=== PATIENT | female | born 1940 | race Caucasian/White ===

== ENCOUNTER → 2021-06-08 | Outpatient (CLI) | payer MEDICARE ==
[2021-06-08 13:16] LABS: CREATININE 1.2 mg/dL (0.5-1.5)
== END | disposition home or self-care (01) ==
LOC: LAB 11:56
PROVIDERS: ATTEND Internal Medicine Cardiovascular Disease
DX: I48.0 Paroxysmal atrial fibrillation (principal)
CPT/HCPCS: 36415; 82565; 84520

== ENCOUNTER → 2021-06-17 | Outpatient (CLI) | payer MEDICARE ==
[~2021-06-17] MED LIST: IOHEXOL 350 MG/ML 100ML INFUS..BTL IV ONE
== END | disposition home or self-care (01) ==
LOC: RAH 10:00
PROVIDERS: ATTEND Internal Medicine Cardiovascular Disease
DX: I48.0 Paroxysmal atrial fibrillation (principal); I51.89 Other ill-defined heart diseases; K44.9 Diaphragmatic hernia without obstruction or gangrene; N28.1 Cyst of kidney, acquired; N28.89 Other specified disorders of kidney and ureter; M48.54XA Collapsed vertebra, not elsewhere classified, thoracic region, initial encounter for fracture
CPT/HCPCS: 71275; Q9967

== ENCOUNTER 2021-12-28 08:28 | Day surgery (SDC) | payer MEDICARE ==
[2021-12-23 11:22] LABS: BASOPHILS % (AUTO) 0.4 % (0.0-5.0); EOSINOPHILS % (AUTO) 0.8 % (0.0-8.0); HEMATOCRIT 42.4 % (36-48); MEAN CORPUSCULAR HGB CONC 32.3 g/dL (32.0-36.0); MEAN CORPUSCULAR VOLUME 95.9 fL (79-99); MONOCYTES % (AUTO) 10.3 % (3.0-13.0); NEUTROPHILS % (AUTO) 72.2 % (40.0-77.0); PLATELET COUNT (AUTO) 259 K/uL (130-400); RED BLOOD CELL COUNT(AUTO) 4.42 MIL/uL (4.00-5.50); RED CELL DISTRIBUTION WIDTH 13.7 % (11.0-15.5); WHITE BLOOD COUNT (AUTO) 10.1 K/uL (4.8-10.8)
[2021-12-23 11:32] LABS: CREATININE 1.1 mg/dL (0.5-1.5); POTASSIUM 4.9 mmol/L (3.5-5.1)
[2021-12-23 11:36] LABS: INR 1.01 (0.85-1.15)
[2021-12-23 11:37] LABS: PARTIAL THROMBOPLASTIN TIME 30.5 SEC (26.3-35.5)
[2021-12-27 13:15] VITALS: BP 144/61
[~2021-12-28] VITALS: Ht 162.6 cm; Wt 81.0 kg
[~2021-12-28 08:28] MED LIST changes: +0.9%NACL 100ML 100 ML IV SCH; +APIX5TAB PO; +DULO60CA64 PO; +EZET-59 PO; +FLUT200B IH; -IOHEXOL 350 MG/ML 100ML INFUS..BTL IV ONE; +MONT-39 PO; +PANT40TA54 PO
[2021-12-28 09:29] VITALS: BP 114/66
[2021-12-28] MEDS ORDERED: 0.9%NACL 1000ML 1,000 ML IV ONE (09:35)
[2021-12-28] MEDS ORDERED: LIDOCAINE HCL 400MG/20ML VIAL ONE (11:17)
[2021-12-28] MEDS ORDERED: HEPARIN 10,000 UNIT/10ML (1,000 UNIT/ML) VIAL ONE (11:17)
[2021-12-28] MEDS ORDERED: MIDAZOLAM HCL 1 MG/ML 2ML VIAL ONE ×3 (12:12→13:25)
[2021-12-28] MEDS ORDERED: MEPERIDINE-PF 25 MG/ML SYG ONE ×4 (12:13→13:25)
[2021-12-28 14:15] VITALS: BP 113/68
[2021-12-28 14:45] VITALS: BP 131/58
[2021-12-28 15:30] VITALS: BP 128/58
[2021-12-28 16:00] VITALS: BP 131/61
== END 2021-12-28 16:35 | disposition home or self-care (01) ==
LOC: DAH 08:28
PROVIDERS: ATTEND Internal Medicine Cardiovascular Disease
DX: I48.0 Paroxysmal atrial fibrillation (principal); I48.92 Unspecified atrial flutter; I10 Essential (primary) hypertension; E78.5 Hyperlipidemia, unspecified; Z90.710 Acquired absence of both cervix and uterus; Z79.01 Long term (current) use of anticoagulants; Z79.899 Other long term (current) drug therapy
CPT/HCPCS: 80048; 85025; 85610; 85730; 36415; 93005 ×2; 93653; C1894 ×2; A4649 ×2; C1732; C1730; J3490; J7030; J1644 ×2; J2250 ×2; J2175 ×3; A4215; A4222; A4221; A4663; A4216; A4606; A4223 ×3; 99156; 99157

== ENCOUNTER → 2022-02-28 | Outpatient (CLI) | payer MEDICARE ==
[~2022-02-28] MED LIST changes: -0.9%NACL 100ML 100 ML IV SCH
[2022-02-28 12:31] LABS: BASOPHILS % (AUTO) 0.6 % (0.0-5.0); EOSINOPHILS % (AUTO) 1.3 % (0.0-8.0); HEMATOCRIT 42.5 % (36-48); LYMPHOCYTES % (AUTO) 24.6 % (21.0-51.0); MEAN CORPUSCULAR HEMOGLOBIN 29.9 pg (27.0-33.0); MEAN CORPUSCULAR HGB CONC 32.9 g/dL (32.0-36.0); MEAN CORPUSCULAR VOLUME 90.8 fL (79-99); MONOCYTES % (AUTO) 10.1 % (3.0-13.0); NEUTROPHILS % (AUTO) 63.1 % (40.0-77.0); PLATELET COUNT (AUTO) 260 K/uL (130-400); RED BLOOD CELL COUNT(AUTO) 4.68 MIL/uL (4.00-5.50); WHITE BLOOD COUNT (AUTO) 8.7 K/uL (4.8-10.8)
[2022-02-28 12:56] LABS: ALBUMIN 3.9 g/dL (3.5-5.0); CREATININE 1.4 mg/dL (0.5-1.5); MAGNESIUM 2.2 mg/dL (1.80-2.40); POTASSIUM 4.5 mmol/L (3.5-5.1); THYROID STIMULATING HORMONE 2.41 uIU/mL (0.36-3.74); TOTAL PROTEIN, SERUM 7.4 g/dL (6.0-8.3)
== END | disposition home or self-care (01) ==
LOC: LAB 11:10
PROVIDERS: ATTEND Physician Assistant
DX: I48.3 Typical atrial flutter (principal); I10 Essential (primary) hypertension
CPT/HCPCS: 36415; 80053; 83735; 84443; 85025

== ENCOUNTER 2024-05-16 16:42 | Inpatient (IN) | payer MEDICARE ==
[~2024-05-16] VITALS: Ht 162.6 cm; Wt 75.7 kg
[~2024-05-16 16:42] MED LIST changes: -BUDESONIDE 0.5 MG/2 ML INH IH SCH; -EZETIMIBE 10 MG TAB PO SCH; -IpraTROPium 0.5 MG/2.5 ML INH IH PRN; -METO25TA6 PO; -PANTOPrazole 40 MG TAB DR PO SCH; -RAMI1.2529 PO; -SERTraline HCL 50 MG TABLET PO SCH; -acetaMINOPHEN 325 MG TAB PO PRN; -dilTIAZem 120MG SR CAP PO SCH; -metoPROLOL tartRATE 25 MG TAB PO SCH; -monteLUKAST sodIUM 10 MG TAB PO SCH; -ondanSETRON 4MG INJ IVP PRN
[2024-05-16] MEDS ORDERED: acetaMINOPHEN 500 MG TABLET PO PRN (17:00)
[2024-05-16] MEDS ORDERED: ondanSETRON 4MG INJ IVP PRN (17:00)
[2024-05-16 17:20] LABS: BASOPHILS # (AUTO) 0.04 K/uL (0.00-0.20); BASOPHILS % (AUTO) 0.4 % (0.0-5.0); EOSINOPHILS # (AUTO) 0.12 K/uL (0.00-0.70); EOSINOPHILS % (AUTO) 1.3 % (0.0-8.0); HEMATOCRIT 36.2 % (36-48); IMMATURE GRANULOCYTE ABSOLUTE 0.02 K/uL (0-1); LYMPHOCYTES # (AUTO) 1.9 K/uL (1.0-4.8); LYMPHOCYTES % (AUTO) 20.9 % (21.0-51.0); MEAN CORPUSCULAR HEMOGLOBIN 27.9 pg (27.0-33.0); MEAN CORPUSCULAR HGB CONC 30.9 g/dL (32.0-36.0); MEAN CORPUSCULAR VOLUME 90.3 fL (79-99); MONOCYTES # (AUTO) 1.1 K/uL (0.1-1.0); MONOCYTES % (AUTO) 11.7 % (3.0-13.0); NEUTROPHILS % (AUTO) 65.5 % (40.0-77.0); PLATELET COUNT (AUTO) 299 K/uL (130-400); RED BLOOD CELL COUNT(AUTO) 4.01 MIL/uL (4.00-5.50); RED CELL DISTRIBUTION WIDTH 14.9 % (11.0-15.5); WHITE BLOOD COUNT (AUTO) 9.1 K/uL (4.8-10.8)
--- NOTE | 2024-05-16 17:23 | HMCIMG ---
CHEST 1VW HISTORY: Pulmonary edema COMPARISON: None FINDINGS: A frontal projection of the chest was obtained. Mild bilateral pulmonary infiltrates are seen may be related to mild pulmonary vascular congestion with possible superimposed pneumonitis. The heart is borderline enlarged. Degenerative changes are seen. Aortic calcifications are seen. IMPRESSION: 1. Mild bilateral pulmonary infiltrates are seen may be related to mild pulmonary vascular congestion with possible superimposed pneumonitis.
[2024-05-16] MEDS ORDERED: IpraTROPium 0.5 MG/2.5 ML INH IH PRN (17:30)
[2024-05-16 17:37] LABS: CREATININE 1.2 mg/dL (0.5-1.0); POTASSIUM 3.8 mmol/L (3.5-5.1); PROTHROMBIN TIME 11.2 SEC (9.6-11.6)
[2024-05-16 17:39] LABS: PARTIAL THROMBOPLASTIN TIME 27.3 SEC (26.3-35.5)
[2024-05-16 17:47] LABS: B-TYPE NATRIURETIC PEPTIDE 253 pg/mL (0-100)
[2024-05-16 17:50] LABS: ALBUMIN 3.8 g/dL (3.5-5.0); BILIRUBIN,TOTAL 0.5 mg/dL (0.2-1.0); MAGNESIUM 1.9 mg/dL (1.80-2.40); THYROID STIMULATING HORMONE 1.34 uIU/mL (0.36-3.74); TOTAL PROTEIN, SERUM 7.3 g/dL (6.0-8.3)
[2024-05-16] MEDS ORDERED: PoTASSium chloRIDE 20MEQ/100ML 100 ML IV PRN (18:00)
[2024-05-16] MEDS ORDERED: PoTASSium chloRIDE 20MEQ ER 20 MEQ ERTAB PO PRN (18:00)
--- NOTE | 2024-05-16 18:54 | HP ---
[facility] HISTORY AND PHYSICAL Date of Service: May 16, 2024 Time of Service: 18:33 HISTORY OF PRESENT ILLNESS: [Date of service: 05/16/2024, patient was seen in ER pending sale to [facility] 83-year-old female with underlying history of hypertension, hyperlipidemia, p aroxysmal atrial fibrillation on long-term anticoagulation with Eliquis, paroxysmal atrial flutter status post ablation of atrial flutter on 12/2021, atrial fibrillation status post Farapulse pulse field ablation on 08/30/2023, recurrent atrial fibrillation and atypical atrial flutter status post repeat Farapulse pulse field ablation on 04/23/2024 with Watchman left atrial appendage closure performed in [facility], history of [id number] mitral regurgitation with mitral annulus caseous calcification on cardiac MRI from 07/20 who presented as a direct admission from Dr. 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 Patient states that postprocedure, she noticed that she has been having progressive pain and swelling involving the right wrist with pulsation noted. Pain is moderate in intensity and the swelling has not improved. She was hospitalized in [facility] earlier in March this year after she was found to have sepsis with complicated urinary tract infection. She was found to have low serum cortisol during her admission and was discharged on hydrocortisone for two weeks. She has not been tested for adrenal insufficiency as outpatient. Patient does report having mild lower extremity edema as well as dyspnea on exertion. She reports having mild orthopnea as well. She is on outpatient Lasix 20 mg daily. Denies any falls, chest pain or syncope. On presentation to the hospital, patient was noted to be afebrile with T-max of 98.2 F, heart rate of 59, blood pressure of 156/69. Patient underwent ultraso und of the right right wrist which showed pseudoaneurysm of the right radial artery measuring 1.8 cm x 1.1 cm x 1.5 cm. Surgical consultation has already been requested with Dr. Rogers with Cardiovascular surgery. Tentative plan for surgical repair of the pseudoaneurysm for tomorrow. Patient will be admitted under hospitalist service for further treatment management.] REVIEW OF SYSTEMS CONSTITUTIONAL: Denies fevers, chills, or night sweats. No unintentional weight loss reported. NEUROLOGICAL: Denies headache, amaurosis fugax, motor weakness, sensory deficit, vertigo/spinning sensation, gait abnormalities, or tremors. ENT: No hearing loss, otalgia, otorrhea, rhinitis, rhinorrhea, hoarseness, or sore throat. CARDIOVASCULAR: Dyspne on exertion, orthopnea, lower extremity swelling PULMONARY: Denies any shortness of breath, cough, phlegm/sputum, hemoptysis, pleuritic chest pain. SLEEP: Denies morning headaches, daytime somnolence or napping. Denies difficulty falling asleep, staying asleep, waking from sleep. Denies knowledge of snoring. GASTROINTESTINAL: Denies any type of dysphagia to either liquids or solids. Denies nausea, vomiting, pyrosis, early satiety, abdominal pain, diarrhea, constipation, or changes in stool consistency or caliber. Denies coffee-ground emesis, hematemesis, hematochezia, or melanotic stools. GENITOURINARY: Denies frequency, urgency, nocturia, hematuria or incontinence (Storage/Irritative symptoms.) Low urinary stream, straining to void, urinary intermittency or hesitancy, splitting of the voiding stream, terminal dribbling. ENDOCRINOLOGIC: Denies polyuria, polydipsia, polyphagia or heat/cold intolerances. HEMATOLOGIC: Denies thrombophilia/previous clots, or coagulopathy/bleeding disorders. ONCOLOGIC: Denies personal history of malignancy. DERMATOLOGIC: Denies rashes or pruritus. PSYCHIATRIC: Denies any suicidal or homicidal ideation. Denies hallucinations. PAST MEDICAL HISTORY: [ Paroxysmal atrial fibrillation status post Farapulse pulse field radiofrequency ablation of atrial fibrillation on 08/30/2023, recurrent atrial fibrillation and atypical atrial flutter status post Farapulse pulse field ablation on 04/17 with Watchman left atrial appendage closure performed in [facility] in [facility], history of long-term anticoagulation with Eliquis for paroxysmal atrial fibrillation, history of normal coronary arteries by cardiac catheterization in 2010, case she was mitral annular calcification noted on cardiac MRI from 07/07/2021, history of trivial mitral stenosis and mild to moderate mitral regurgitation noted on 2D echocardiogram from 01/06/2022, history of ktxd-cy-vufalhox mitral stenosis noted on 2D echocardiogram from 03/30 021, hypertension, hyperlipidemia, history of T12-L1 compression fracture status post fall noted on 2018, history of asthma] PAST SURGICAL HISTORY: [Status post Farapulse pulse field ablation done on 04/23/2024 with Watchman left atrial happened age closure performed in [facility] in [place], [place] History of paroxysmal atrial fibrillation status post radiofrequency ablation on 08/30/2023 History of cardiac catheterization with normal coronary recent 2010 History of L1 kyphoplasty on 04/2019] PAST SOCIAL HISTORY: [ Denies any active smoking or alcohol consumption, resides with sister at home] FAMILY HISTORY: [ Patient reports having family history of heart disease ] Medications: Patient reports currently being on sertraline 25 mg p.o. nightly, metoprolol tartrate 25 mg p.o. twice daily, Eliquis 5 mg p.o. twice daily, diltiazem ER 300 mg p.o. daily, ezetimibe 10 mg p.o. daily, Protonix 40 mg p.o. daily, montelukast 10 mg p.o. daily, ramipril 2.5 mg p.o. daily Coded Allergies: codeine (Unverified Allergy, Unknown, 05/16/24) penicillin G (Verified Allergy, Unknown, 12/23/21) PHYSICAL EXAM GENERAL APPEARANCE: The patient is awake, alert, and oriented, in no acute cardiopulmonary distress. NEUROLOGICAL: Cranial nerves II-XII grossly intact. Motor is 5/5 in bilateral upper and lower extremities proximal to distal. No sensory deficits. HEENT: Face is symmetric. Pupils are equal and reactive. Extraocular movements are intact. NECK: Supple. No JVD. No thyromegaly. No submental, submandibular, pre- /postauricular, occipital or supraclavicular lymphadenopathy. CHEST: Normal chest expansion. No Telemetry. LUNGS: Absence of any rales, rhonchi or any wheezing. CARDIOVASCULAR: Regular. S1 and S2 normal. No appreciable rubs, murmurs or gallops. ABDOMEN: Soft, nontender, and nondistended. There is no rebound, voluntary guarding, or rigidity. : Deferred. No Downey. EXTREMITIES: 1+ pitting edema of the bilateral lower extremities, patient has a about a 25 mm x 23 mm pulsatile mass noted of the right radial artery near the catheterization puncture site. SKIN: No skin breakdown. Vital Sign (Last 24 Hours) 05/16/24 16:46 Temp 98.2 Pulse 59 Resp 20 B/P (MAP) 156/69 Pulse Ox 97 O2 Delivery Room Air LABS: Laboratory: Test 05/16/24 17:08 Range/Units White Blood Count 9.1 4.8-10.8 K/uL Red Blood Count 4.01 4.00-5.50 MIL/uL Hemoglobin 11.2 L 12.0-16.0 g/dL Hematocrit 36.2 36-48 % Mean Corpuscular Volume 90.3 79-99 fL Mean Corpuscular Hemoglobin 27.9 27.0-33.0 pg Mean Corpuscular Hemoglobin Concent 30.9 L 32.0-36.0 g/dL Red Cell Distribution Width 14.9 11.0-15.5 % Platelet Count 299 130-400 K/uL Mean Platelet Volume 10.0 7.5-10.5 fL Immature Granulocyte % (Auto) 0.2 0-1 % Neutrophils (%) (Auto) 65.5 40.0-77.0 % Lymphocytes (%) (Auto) 20.9 L 21.0-51.0 % Monocytes (%) (Auto) 11.7 3.0-13.0 % Eosinophils (%) (Auto) 1.3 0.0-8.0 % Basophils (%) (Auto) 0.4 0.0-5.0 % Neutrophils # (Auto) 6.0 1.8-7.7 K/uL Lymphocytes # (Auto) 1.9 1.0-4.8 K/uL Monocytes # (Auto) 1.1 H 0.1-1.0 K/uL Eosinophils # (Auto) 0.12 0.00-0.70 K/uL Basophils # (Auto) 0.04 0.00-0.20 K/uL Absolute Immature Granulocyte (auto 0.02 0-1 K/uL Nucleated Red Blood Cells 0.0 0.0-0.19 % Red Blood Cell Morphology See comments Prothrombin Time 11.2 9.6-11.6 SEC Prothromb Time International Ratio 1.00 0.85-1.15 Activated Partial Thromboplast Time 27.3 26.3-35.5 SEC Sodium Level 144 136-145 mmol/L Potassium Level 3.8 3.5-5.1 mmol/L Chloride Level 105 101-111 mmol/L Carbon Dioxide Level 33 H 21-32 mmol/L Blood Urea Nitrogen 20 H 7-18 mg/dL Creatinine 1.2 H 0.5-1.0 mg/dL Glomerular Filtration Rate Calc 45 >90 mL/min Random Glucose 106 H 70-105 mg/dL Total Calcium 9.3 8.5-10.1 mg/dL Magnesium Level 1.90 1.80-2.40 mg/dL Total Bilirubin 0.5 0.2-1.0 mg/dL Aspartate Amino Transf (AST/SGOT) 25 10-37 U/L Alanine Aminotransferase (ALT/SGPT) 28 12-78 U/L Alkaline Phosphatase 47 L 50-136 U/L C-Reactive Protein, Quantitative 3.60 H 0.5-3.0 mg/L B-Type Natriuretic Peptide 253 H 0-100 pg/mL Total Protein 7.3 6.0-8.3 g/dL Albumin 3.8 3.5-5.0 g/dL Thyroid Stimulating Hormone (TSH) 1.34 # 0.36-3.74 uIU/mL Current Medications Medications (Trade) Dose Ordered Sig/Margy Route PRN Reason Start Time Stop Time Status Last Admin Dose Admin Acetaminophen (TYLenol 500MG TAB) 500 mg Q6H PRN PO MILD PAIN (1-3) 05/16/24 17:00 06/15/24 16:59 Budesonide (Pulmicort 0.5 Mg/2ml) 0.5 mg BIDRESP IH 05/16/24 18:00 06/15/24 17:59 EZETIMIBE (Zetia) 10 mg DAILY PO 05/17/24 09:00 06/16/24 08:59 Furosemide (LASix 20MG VIAL) 20 mg DAILY IV 05/16/24 20:00 06/15/24 19:59 Home Med (Home Medication) DILTIAZEM XR 300MG TAB DAILY PO 05/17/24 09:00 06/16/24 08:59 Ipratropium Folcroft (AtrovENT UD) 0.5 mg Q6H PRN IH SHORTNESS OF BREATH 05/16/24 17:30 06/15/24 17:29 Magnesium Sulfate 50 ml @ 0 mls/hr PROTOCOL IV 05/16/24 18:00 06/15/24 17:59 Metoprolol Tartrate (loprESSOR) 25 mg BID PO 05/16/24 21:00 06/15/24 20:59 Montelukast Sodium (SinguLAIR) 10 mg DAILY PO 05/17/24 09:00 06/16/24 08:59 Ondansetron HCl (zoFRAN 4MG INJ) 4 mg Q6H PRN IVP NAUSEA/VOMITING 05/16/24 17:00 06/15/24 16:59 Pantoprazole Sodium (PROTonix 40MG TAB) 40 mg DAILY PO 05/17/24 09:00 06/16/24 08:59 Potassium Chloride 100 ml @ 100 mls/hr AD PRN IV POTASSIUM PROTOCOL 05/16/24 18:00 06/15/24 17:59 Potassium Chloride (K-Dur/Klor-Con 20meq) 20 meq AD PRN PO POTASSIUM PROTOCOL 05/16/24 18:00 06/15/24 17:59 Potassium Chloride (KCl 10% Elixir 20meq/15ml) 20 meq AD PRN PO POTASSIUM PROTOCOL 05/16/24 18:00 06/15/24 17:59 Sertraline HCl (ZOloft 50 mg tab) 25 mg HS PO 05/16/24 21:00 06/15/24 20:59 DIAGNOSTICS / RADIOLOGY: [SERVICE REASON: r/o pulmonary edema ORDERING PHYSICIAN: SEVERINO YEE MD PROCEDURE: CXR1VW - CHEST 1VW CHEST 1VW HISTORY: Pulmonary edema COMPARISON: None FINDINGS: A frontal projection of the chest was obtained. Mild bilateral pulmonary infiltrates are seen may be related to mild pulmonary vascular congestion with possible superimposed pneumonitis. The heart is borderline enlarged. Degenerative changes are seen. Aortic calcifications are seen. IMPRESSION: 1. Mild bilateral pulmonary infiltrates are seen may be related to mild pulmonary vascular congestion with possible superimposed pneumonitis. DICTATED BY: MARTÍNEZ SUE MD DATE: 05/16/241719 ELECTRONICALLY SIGNED BY: MARTÍNEZ SUE MD DATE: 05/16/241722 SERVICE REASON: PSEUDO ORDERING PHYSICIAN: ANGEL VALENCIA MD PROCEDURE: SOFT UP EX - US SOFT TISSUE UPPER EXTREMITY US SOFT TISSUE UPPER EXTREMITY REASON: PSEUDO. COMPARISON: None TECHNIQUE: Right radial artery Doppler ultrasound study was performed. FINDINGS: There is pseudoaneurysm noted in the right radial artery area measuring 1.8 x 1.1 x 1.5 cm with a neck measuring 1 mm long and 2 mm wide. IMPRESSION: Pseudoaneurysm seen adjacent to the right radial artery. DICTATED BY: MARTÍNEZ SUE MD DATE: 05/16/241628 ELECTRONICALLY SIGNED BY: MARTÍNEZ SUE MD DATE: 05/16/241634 ASSESSMENT: Pseudo-aneurysm involving the right radial artery, (measuring 1.8 cm x 1.1 cm x 1.5 cm ), POA Recent history of Farapulse pulse field ablation due to paroxysmal atrial fi brillation and atypical atrial flutter in [place], [place], 04/23/2024, POA Status post watchman left atrial appendage closure, 04/23/2024, POA History of chronic anticoagulation with apixaban, (last dose on a.m. of 05/16/2024), POA Acute diastolic heart failure exacerbation, POA Underlying history of mild mitral stenosis and [id number] mitral regurgitation noted on 2D echo from 01/06/2022, POA History of caseous mitral annular calcification noted on cardiac MRI from 07/07/2021 Hypertension, POA Hyperlipidemia, POA Obstructive sleep apnea on CPAP therapy at home, POA Underlying history of asthma, POA Recent history of sepsis due to complicated UTI requiring hospitalization in [facility] on 03/2024, POA Recent history of low serum cortisol on labs from 03/2024, rule out adrenal insufficiency, POA CKD stage 3, POA PLAN: Patient will be admitted to cardiac telemetry floor Soft tissue ultrasound showed right radial artery pseudoaneurysm, tentative plan for surgical repair of the right radial artery tomorrow by Dr. Rogers, patient will be kept NPO past midnight Outpatient anticoagulation with Eliquis will be placed on hold for planned surgical repair, last dose of Eliquis was on the morning of 05/16/2024 Patient reports having dyspnea on exertion with mild orthopnea, chest x-ray shows mild pulmonary edema with mildly elevated BNP, we will start patient on IV Lasix 20 mg with a dose for tonight We will maintain K greater than four and magnesium greater than two, protocol for magnesium and potassium has already been placed We will obtain a random serum cortisol at 7:00 a.m. tomorrow and if significantly low, patient may need cosyntropin stimulation test to rule out adrenal insufficiency Patient will continue with Pulmicort and Atrovent nebulizers q.6 hours p.r.n. Appreciate recommendations by Dr. Machado with Cardiology DVT prophylaxis with SCDs All labs will be repeated in the morning including CBC, CMP, magnesium, patient will be kept NPO past midnight, volume status will be optimized prior to anesthesia and surgical repair of the right radial artery Family will be bringing home CPAP machine, which patient we will resume for management of BOLIVAR Date of service: 05/16/2024 Plan of care was discussed with patient and sister at bedside, Severino Yee MD Advanced Care Planning: Which of the following were discussed: Hospice care: Yes __ No _X_ Therapeutic options: Yes _X_ No __ Advance directives: Yes _X_ No __ Other discussions: Discussed with who?: Patient Voluntary nature of this service was explained to the patient? Yes _x_ No __ Amount of time spent: 20 minutes SEVERINO YEE MD May 16, 2024 18:54
[2024-05-16] MEDS: BUDESONIDE 0.5 MG/2 ML INH IH SCH (19:18)
[2024-05-16 19:22] VITALS: PULSE 64; RESP 19
[2024-05-16 19:23] VITALS: PULSE 66; RESP 19; O2SAT 99
[2024-05-16] MEDS ORDERED: PHARMACY COMMUNICATION MISC SCH (19:30)
[2024-05-16] MEDS: metoPROLOL tartRATE 25 MG TAB PO SCH (20:32)
[2024-05-16] MEDS: furoSEMIDE 20MG VIAL IV SCH (20:32)
[2024-05-16] MEDS: SERTraline HCL 50 MG TABLET PO SCH (20:49)
--- NOTE | 2024-05-16 21:43 | NUR ---
UNABLE TO RECONCILE MEDS INSTRUCTED PATIENT ASK ONE OF HER FAMILY TO BRING HER LIST OF MEDS TOMORROW
--- NOTE | 2024-05-17 07:03 | NUR ---
SECURED CONSENT FOR REPAIR OF RIGHT RADIAL ANEURYSM- [employer]DY ELAINE
[2024-05-17 07:24] VITALS: PULSE 67; RESP 18; O2SAT 99
[2024-05-17 07:25] VITALS: PULSE 67; RESP 19
[2024-05-17 07:41] LABS: BASOPHILS # (AUTO) 0.04 K/uL (0.00-0.20); BASOPHILS % (AUTO) 0.5 % (0.0-5.0); EOSINOPHILS % (AUTO) 1.4 % (0.0-8.0); HEMATOCRIT 33.2 % (36-48); IMMATURE GRANULOCYTE ABSOLUTE 0.02 K/uL (0-1); LYMPHOCYTES # (AUTO) 1.3 K/uL (1.0-4.8); LYMPHOCYTES % (AUTO) 17.8 % (21.0-51.0); MEAN CORPUSCULAR HGB CONC 31.6 g/dL (32.0-36.0); MEAN CORPUSCULAR VOLUME 88.5 fL (79-99); MONOCYTES # (AUTO) 0.9 K/uL (0.1-1.0); MONOCYTES % (AUTO) 11.9 % (3.0-13.0); NEUTROPHILS % (AUTO) 68.1 % (40.0-77.0); PLATELET COUNT (AUTO) 281 K/uL (130-400); RED BLOOD CELL COUNT(AUTO) 3.75 MIL/uL (4.00-5.50); RED CELL DISTRIBUTION WIDTH 14.7 % (11.0-15.5); WHITE BLOOD COUNT (AUTO) 7.4 K/uL (4.8-10.8)
[2024-05-17 08:00] LABS: ALBUMIN 3.3 g/dL (3.5-5.0); BILIRUBIN,TOTAL 0.7 mg/dL (0.2-1.0); MAGNESIUM 1.8 mg/dL (1.80-2.40); POTASSIUM 3.3 mmol/L (3.5-5.1); TOTAL PROTEIN, SERUM 6.4 g/dL (6.0-8.3)
[2024-05-17 08:09] LABS: B-TYPE NATRIURETIC PEPTIDE 174 pg/mL (0-100)
[2024-05-17 08:13] VITALS: O2SAT 97
[2024-05-17] MEDS: DILTIAZEM 300 MG PO SCH (09:00)
[2024-05-17] MEDS: monteLUKAST sodIUM 10 MG TAB PO SCH (09:14)
[2024-05-17] MEDS: PANTOPrazole 40 MG TAB DR PO SCH (09:14)
[2024-05-17] MEDS: EZETIMIBE 10 MG TAB PO SCH (09:14)
[2024-05-17] MEDS: PoTASSium chl 10% ELIXIR 20MEQ 20 MEQ/15 ML UDCUP PO PRN (09:29)
--- NOTE | 2024-05-17 10:11 | PN ---
[facility] CARDIOLOGY PROGRESS NOTE Date Patient Seen: May 17, 2024 Time of Visit: 09:49 Interval History: This 83-year-old Latin-[place] female, patient of mine at [facility], has a history of hypertension, hyperlipidemia, caseous calcification of the mitral annulus with trivial mitral stenosis and [id number]-[id number] MR by 2D echo 01/06/2022, and paroxysmal atrial fibrillation is status post prior Farapulse pulse field ablation of her atrial fibrillation 08/30/2023 in more recent repeat Farapulse pulse field ablation of recurrent atrial fibrillation and atypical atrial flutter 04/23/[address] Petros Neal at [facility] in [facility]. She presented to my office 05/16/2024 complaining of a painful right radial artery pulsation and swelling. Clinically she had evidence of a right radial artery pseudoaneurysm and she was directly admitted for ultrasound and surgical management. Presumably the aneurysm is a result of a right radial artery arterial line performed for monitoring of her anesthesia for her atrial fibrillation ablation procedure 04/23/2024. 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 She underwent an ultrasound of the right radial artery 05/16/2024 demonstrating a pseudoaneurysm of the right radial artery measuring 1.8 cm x 1.1 cm x 1.[address] Manny Rogers is pending and surgery is tentatively planned for this afternoon or tomorrow depending on OR availability. Of note the patient had evidence of acute on chronic diastolic CHF on admission, and she has been placed on a dose of furosemide 20 IV daily x2 days and we will transition to p.o. daily beginning tomorrow. Physical Examination: GENERAL: No acute distress. HEAD: Normal with no signs of head trauma. EYES: PERRLA, EOMI, conjunctiva and sclera normal. NECK: Supple without JVD. There is no tenderness, lymphadenopathy, or masses. No thyromegaly. Normal carotid upstrokes without bruits. LUNGS: Clear breath sounds bilaterally. No wheezes, or rhonchi. HEART: Normal rate and rhythm. Normal S1 and S2 without murmurs, gallop or rub. VASC: Peripheral pulses +2 bilaterally. EXT: No clubbing, cyanosis or edema. 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 NEURO: Awake, alert, and oriented x3. No focal neurological deficits noted. Laboratory: Hematology Labs: Test 05/17/24 07:07 05/16/24 17:08 Range/Units White Blood Count 7.4 4.8-10.8 K/uL Red Blood Count 3.75 L 4.00-5.50 MIL/uL Hemoglobin 10.5 L 12.0-16.0 g/dL Hematocrit 33.2 L 36-48 % Mean Corpuscular Volume 88.5 79-99 fL Mean Corpuscular Hemoglobin 28.0 27.0-33.0 pg Mean Corpuscular Hemoglobin Concent 31.6 L 32.0-36.0 g/dL Red Cell Distribution Width 14.7 11.0-15.5 % Platelet Count 281 130-400 K/uL Mean Platelet Volume 10.4 7.5-10.5 fL Immature Granulocyte % (Auto) 0.3 0-1 % Neutrophils (%) (Auto) 68.1 40.0-77.0 % Lymphocytes (%) (Auto) 17.8 L 21.0-51.0 % Monocytes (%) (Auto) 11.9 3.0-13.0 % Eosinophils (%) (Auto) 1.4 0.0-8.0 % Basophils (%) (Auto) 0.5 0.0-5.0 % Neutrophils # (Auto) 5.0 1.8-7.7 K/uL Lymphocytes # (Auto) 1.3 1.0-4.8 K/uL Monocytes # (Auto) 0.9 0.1-1.0 K/uL Eosinophils # (Auto) 0.10 0.00-0.70 K/uL Basophils # (Auto) 0.04 0.00-0.20 K/uL Absolute Immature Granulocyte (auto 0.02 0-1 K/uL Nucleated Red Blood Cells 0.0 0.0-0.19 % Red Blood Cell Morphology See comments Chemistry Labs: Test 05/17/24 07:07 05/16/24 17:08 Range/Units Sodium Level 142 136-145 mmol/L Potassium Level 3.3 L 3.5-5.1 mmol/L Chloride Level 104 101-111 mmol/L Carbon Dioxide Level 30 21-32 mmol/L Blood Urea Nitrogen 15 7-18 mg/dL Creatinine 1.0 0.5-1.0 mg/dL Glomerular Filtration Rate Calc 57 >90 mL/min Random Glucose 90 70-105 mg/dL Total Calcium 8.7 8.5-10.1 mg/dL Magnesium Level 1.80 1.80-2.40 mg/dL Total Bilirubin 0.7 # 0.2-1.0 mg/dL Aspartate Amino Transf (AST/SGOT) 21 10-37 U/L Alanine Aminotransferase (ALT/SGPT) 23 12-78 U/L Alkaline Phosphatase 40 L 50-136 U/L B-Type Natriuretic Peptide 174 H 0-100 pg/mL Total Protein 6.4 6.0-8.3 g/dL Albumin 3.3 L 3.5-5.0 g/dL C-Reactive Protein, Quantitative 3.60 H 0.5-3.0 mg/L Thyroid Stimulating Hormone (TSH) 1.34 # 0.36-3.74 uIU/mL Coagulation Labs: Test 05/16/24 17:08 Range/Units Prothrombin Time 11.2 9.6-11.6 SEC Prothromb Time International Ratio 1.00 0.85-1.15 Activated Partial Thromboplast Time 27.3 26.3-35.5 SEC Diagnostics / Radiology: Right radial artery ultrasound 05/16/2024 showed pseudoaneurysm of the right radial artery measuring 1.8 cm x 1.1 cm x 1.5 cm. Impression and Plan: Right radial artery pseudoaneurysm measuring 1.8 cm by 1.1 cm x 1.5 cm by ultrasound 05/16/2024, at the site of a prior radial arterial line from procedure 04/23/2024: -surgical consultation and management is pending -last dose of Eliquis was 9:00 a.m. 05/16/2024, okay to proceed at 36 hours since last dose Paroxysmal atrial fibrillation s/p status post prior Farapulse pulse field ablation of her atrial fibrillation 08/30/2023 and more recent repeat Farapulse pulse field ablation of recurrent atrial fibrillation and atypical atrial flutter 04/23/2024 (with Watchman left atrial occluded device) by Dr. Petros Neal at [facility] in [facility]: -continue long-term Eliquis anticoagulation, postprocedurally Long-term anticoagulation with Eliquis for paroxysmal AFib: Status post Watchman left atrial occluded device 04/23/2024: -resume Eliquis anticoagulation postprocedurally Normochromic normocytic anemia: -check a stool guaiac while here and iron studies, B12, and folate Recent history of low serum cortisol on labs from 03/2024, rule out adrenal insufficiency: -pending a.m. cortisol Comorbidities: Trivial mitral stenosis and [id number] MR by 2D echo 01/06/2022 with caseous calcification of the mitral annulus by MRI 07/07/2021 in [place] Essential hypertension Hyperlipidemia Normal coronary arteries by cardiac catheterization in 2010 Inflammatory lung disease status post steroid therapy and tapering December 15, 2016 Obstructive sleep apnea on CPAP therapy at home Underlying history of asthma Recent history of sepsis due to complicated UTI requiring hospitalization in [facility] [place] 03[place]2024 CKD stage 3 ELVI GARCIA MD May 17, 2024 10:11
[2024-05-17] MEDS ORDERED: METO25TA6 PO (11:23)
[2024-05-17] MEDS ORDERED: RAMI1.2529 PO (11:23)
[2024-05-17 12:00] VITALS: BP 143/63; PULSE 18; RESP 17; TEMP 98.3
[2024-05-17] MEDS ORDERED: CLINDAMYCIN IVPB 600MG/50ML 50 ML IV SCH (12:00)
[2024-05-17] MEDS: MAGNESIUM 2GM PREMIX 50ML 50 ML IV SCH (12:42)
--- NOTE | 2024-05-17 15:27 | PN ---
[facility] PROGRESS NOTE Date of Service: May 17, 2024 Time of Service: 14:57 SUBJECTIVE: 05/17/2024 the patient was evaluated this morning at her bedside. She is alert and oriented to person, place, and time. Vital signs are stable, with a temperature of 97 F, heart rate of 78 bpm, respiratory rate of 20, and blood pressure of 144/58. The patient is scheduled for surgery today to repair a pseudoaneurysm in her right wrist. The medication Eliquis was held prior to surgery and will be resumed post procedure. Laboratory results WBC 7.4 Previously 9.1, hemoglobin 10.5 Previously 11.2, platelets 281 previously 299, sodium 142 previously 144, potassium 3.3 Previously 3.8, creatinine 1.0 previously 1.2, GFR 57 previously 45. Pending labs include morning cortisol, stool guaiac, iron studies, vitamin B12, and folate levels. The patient will continue to be monitored, and recommendations from Cardiology and Cardiovascular teams will be followed. REVIEW OF SYSTEMS CONSTITUTIONAL: Denies fevers, chills, or night sweats. No unintentional weight loss reported. NEUROLOGICAL: Denies headache, amaurosis fugax, motor weakness, sensory deficit, vertigo/spinning sensation, gait abnormalities, or tremors. ENT: No hearing loss, otalgia, otorrhea, rhinitis, rhinorrhea, hoarseness, or sore throat. CARDIOVASCULAR: Dyspne on exertion, orthopnea, lower extremity swelling PULMONARY: Denies any shortness of breath, cough, phlegm/sputum, hemoptysis, pleuritic chest pain. SLEEP: Denies morning headaches, daytime somnolence or napping. Denies difficulty falling asleep, staying asleep, waking from sleep. Denies knowledge of snoring. GASTROINTESTINAL: Denies any type of dysphagia to either liquids or solids. Denies nausea, vomiting, pyrosis, early satiety, abdominal pain, diarrhea, constipation, or changes in stool consistency or caliber. Denies coffee-ground emesis, hematemesis, hematochezia, or melanotic stools. GENITOURINARY: Denies frequency, urgency, nocturia, hematuria or incontinence (Storage/Irritative symptoms.) Low urinary stream, straining to void, urinary intermittency or hesitancy, splitting of the voiding stream, terminal dribbling. ENDOCRINOLOGIC: Denies polyuria, polydipsia, polyphagia or heat/cold intolerances. HEMATOLOGIC: Denies thrombophilia/previous clots, or coagulopathy/bleeding disorders. ONCOLOGIC: Denies personal history of malignancy. DERMATOLOGIC: Denies rashes or pruritus. PSYCHIATRIC: Denies any suicidal or homicidal ideation. Denies hallucinations. PHYSICAL EXAM GENERAL APPEARANCE: The patient is awake, alert, and oriented, in no acute cardiopulmonary distress. NEUROLOGICAL: Cranial nerves II-XII grossly intact. Motor is 5/5 in bilateral upper and lower extremities proximal to distal. No sensory deficits. HEENT: Face is symmetric. Pupils are equal and reactive. Extraocular movements are intact. NECK: Supple. No JVD. No thyromegaly. No submental, submandibular, pre- /postauricular, occipital or supraclavicular lymphadenopathy. CHEST: Normal chest expansion. No Telemetry. LUNGS: Absence of any rales, rhonchi or any wheezing. CARDIOVASCULAR: Regular. S1 and S2 normal. No appreciable rubs, murmurs or gallops. ABDOMEN: Soft, nontender, and nondistended. There is no rebound, voluntary guarding, or rigidity. : Deferred. No Downey. EXTREMITIES: 1+ pitting edema of the bilateral lower extremities, patient has a about a 25 mm x 23 mm pulsatile mass noted of the right radial artery near the catheterization puncture site. SKIN: No skin breakdown. Vital Signs (last 8hr) Date Time Temp Pulse Resp B/P (MAP) Pulse Ox O2 Delivery O2 Flow Rate FiO2 05/17/24 12:00 98.2 18 17 143/63 97 Room Air 05/17/24 08:13 97.0 78 20 144/58 97 Room Air* 0 21 05/17/24 07:25 67 19 05/17/24 07:24 67 18 N/A Room Air 21 LABS: Laboratory: Test 05/17/24 07:07 05/16/24 17:08 Range/Units White Blood Count 7.4 4.8-10.8 K/uL Red Blood Count 3.75 L 4.00-5.50 MIL/uL Hemoglobin 10.5 L 12.0-16.0 g/dL Hematocrit 33.2 L 36-48 % Mean Corpuscular Volume 88.5 79-99 fL Mean Corpuscular Hemoglobin 28.0 27.0-33.0 pg Mean Corpuscular Hemoglobin Concent 31.6 L 32.0-36.0 g/dL Red Cell Distribution Width 14.7 11.0-15.5 % Platelet Count 281 130-400 K/uL Mean Platelet Volume 10.4 7.5-10.5 fL Immature Granulocyte % (Auto) 0.3 0-1 % Neutrophils (%) (Auto) 68.1 40.0-77.0 % Lymphocytes (%) (Auto) 17.8 L 21.0-51.0 % Monocytes (%) (Auto) 11.9 3.0-13.0 % Eosinophils (%) (Auto) 1.4 0.0-8.0 % Basophils (%) (Auto) 0.5 0.0-5.0 % Neutrophils # (Auto) 5.0 1.8-7.7 K/uL Lymphocytes # (Auto) 1.3 1.0-4.8 K/uL Monocytes # (Auto) 0.9 0.1-1.0 K/uL Eosinophils # (Auto) 0.10 0.00-0.70 K/uL Basophils # (Auto) 0.04 0.00-0.20 K/uL Absolute Immature Granulocyte (auto 0.02 0-1 K/uL Nucleated Red Blood Cells 0.0 0.0-0.19 % Sodium Level 142 136-145 mmol/L Potassium Level 3.3 L 3.5-5.1 mmol/L Chloride Level 104 101-111 mmol/L Carbon Dioxide Level 30 21-32 mmol/L Blood Urea Nitrogen 15 7-18 mg/dL Creatinine 1.0 0.5-1.0 mg/dL Glomerular Filtration Rate Calc 57 >90 mL/min Random Glucose 90 70-105 mg/dL Total Calcium 8.7 8.5-10.1 mg/dL Magnesium Level 1.80 1.80-2.40 mg/dL Total Bilirubin 0.7 # 0.2-1.0 mg/dL Aspartate Amino Transf (AST/SGOT) 21 10-37 U/L Alanine Aminotransferase (ALT/SGPT) 23 12-78 U/L Alkaline Phosphatase 40 L 50-136 U/L B-Type Natriuretic Peptide 174 H 0-100 pg/mL Total Protein 6.4 6.0-8.3 g/dL Albumin 3.3 L 3.5-5.0 g/dL Red Blood Cell Morphology See comments Prothrombin Time 11.2 9.6-11.6 SEC Prothromb Time International Ratio 1.00 0.85-1.15 Activated Partial Thromboplast Time 27.3 26.3-35.5 SEC C-Reactive Protein, Quantitative 3.60 H 0.5-3.0 mg/L Thyroid Stimulating Hormone (TSH) 1.34 # 0.36-3.74 uIU/mL Current Medications Medications (Trade) Dose Ordered Sig/Margy Route PRN Reason Start Time Stop Time Status Last Admin Dose Admin Acetaminophen (TYLenol 500MG TAB) 500 mg Q6H PRN PO MILD PAIN (1-3) 05/16/24 17:00 06/15/24 16:59 Budesonide (Pulmicort 0.5 Mg/2ml) 0.5 mg BIDRESP IH 05/16/24 18:00 06/15/24 17:59 05/17/24 07:22 0.5 MG Clindamycin HCl/ Dextrose 50 ml @ 100 mls/hr ONCALL IV 05/17/24 12:00 05/19/24 11:59 EZETIMIBE (Zetia) 10 mg DAILY PO 05/17/24 09:00 06/16/24 08:59 05/17/24 09:14 10 MG Furosemide (LASix 20MG TAB) 20 mg DAILY PO 05/18/24 09:00 06/17/24 08:59 Furosemide (LASix 20MG VIAL) 20 mg DAILY IV 05/16/24 20:00 05/17/24 10:11 DC 05/17/24 09:14 20 MG Home Med (Home Medication) 1 TAB DAILY DAILY PO 05/17/24 09:00 06/16/24 08:59 Home Med (Home Medication) DILTIAZEM XR 300MG TAB DAILY PO 05/17/24 09:00 06/16/24 08:59 Ipratropium Sylvester (AtrovENT UD) 0.5 mg Q6H PRN IH SHORTNESS OF BREATH 05/16/24 17:30 06/15/24 17:29 Magnesium Sulfate 50 ml @ 0 mls/hr PROTOCOL IV 05/16/24 18:00 06/15/24 17:59 05/17/24 12:42 25 MLS/HR Metoprolol Tartrate (loprESSOR) 25 mg BID PO 05/16/24 21:00 06/15/24 20:59 05/17/24 09:14 25 MG Montelukast Sodium (SinguLAIR) 10 mg DAILY PO 05/17/24 09:00 06/16/24 08:59 05/17/24 09:14 10 MG Ondansetron HCl (zoFRAN 4MG INJ) 4 mg Q6H PRN IVP NAUSEA/VOMITING 05/16/24 17:00 06/15/24 16:59 Pantoprazole Sodium (PROTonix 40MG TAB) 40 mg DAILY PO 05/17/24 09:00 06/16/24 08:59 05/17/24 09:14 40 MG Pharmacy Profile Note (Pharmacy Communication) 1 each ONCE MISC 05/16/24 19:30 05/16/24 19:26 DC Potassium Chloride 100 ml @ 100 mls/hr AD PRN IV POTASSIUM PROTOCOL 05/16/24 18:00 06/15/24 17:59 Potassium Chloride (K-Dur/Klor-Con 20meq) 20 meq AD PRN PO POTASSIUM PROTOCOL 05/16/24 18:00 06/15/24 17:59 Potassium Chloride (KCl 10% Elixir 20meq/15ml) 20 meq AD PRN PO POTASSIUM PROTOCOL 05/16/24 18:00 06/15/24 17:59 05/17/24 09:29 20 MEQ Sertraline HCl (ZOloft 50 mg tab) 25 mg HS PO 05/16/24 21:00 06/15/24 20:59 05/16/24 20:49 25 MG DIAGNOSTICS / RADIOLOGY: PATIENT: MINDI CUNNINGHAM MR#: [id number] : 1940 SEX: F AGE: 83 LOCATION: EDHIP ORDER 55 STATUS: ADM IN REPORT#: [id number] SERVICE 54 REASON: r/o pulmonary edema ORDERING PHYSICIAN: ZACHARY WILKES MD PROCEDURE: CXR1VW - CHEST 1VW CHEST 1VW HISTORY: Pulmonary edema COMPARISON: None FINDINGS: A frontal projection of the chest was obtained. Mild bilateral pulmonary infiltrates are seen may be related to mild pulmonary vascular congestion with possible superimposed pneumonitis. The heart is borderline enlarged. Degenerative changes are seen. Aortic calcifications are seen. IMPRESSION: 1. Mild bilateral pulmonary infiltrates are seen may be related to mild pulmonary vascular congestion with possible superimposed pneumonitis. DICTATED BY: MARTÍNEZ SUE MD DATE: 05/16/241719 ELECTRONICALLY SIGNED BY: MARTÍNEZ SUE MD DATE: 05/16/241722 ASSESSMENT: Pseudo-aneurysm involving the right radial artery, (measuring 1.8 cm x 1.1 cm x 1.5 cm ), POA Recent history of Farapulse pulse field ablation due to paroxysmal atrial fibrillation and atypical atrial flutter in [facility], [place], [place], 04/23/2024, POA Status post watchman left atrial appendage closure, 04/23/2024, POA History of chronic anticoagulation with apixaban, (last dose on a.m. of 05/16/2024), POA Acute diastolic heart failure exacerbation, POA Underlying history of mild mitral stenosis and [id number] mitral regurgitation noted on 2D echo from 01/06/2022, POA History of caseous mitral annular calcification noted on cardiac MRI from 07/07/2021 Hypertension, POA Hyperlipidemia, POA Obstructive sleep apnea on CPAP therapy at home, POA Underlying history of asthma, POA Recent history of sepsis due to complicated UTI requiring hospitalization in [facility] on 03/2024, POA Recent history of low serum cortisol on labs from 03/2024, rule out adrenal insufficiency, POA CKD stage 3, POA PLAN: Continue cardiac telemetry floor Soft tissue ultrasound showed right radial artery pseudoaneurysm, tentative plan for surgical repair of the right radial artery today by Dr. Rogers, patient will be kept NPO anticoagulation with Eliquis will be placed on hold for planned surgical repair, last dose of Eliquis was on the morning of 05/16/2024. Continue IV Lasix 20 mg Continue maintain K greater than four and magnesium greater than two, protocol for magnesium and potassium has already been placed Pending random serum cortisol at 7:00 a.m. t Continue with Pulmicort and Atrovent nebulizers q.6 hours p.r.n. Appreciate recommendations by Dr. Machado with Cardiology DVT prophylaxis with SCDs All labs will be repeated in the morning including CBC, CMP, magnesium, patient will be kept NPO past midnight, volume status will be optimized prior to anesthesia and surgical repair of the right radial artery ATTESTATION BY PHYSICIAN I have seen and examined the patient. I reviewed the documentation, medical decision making, and treatment plan as noted by the resident provider above. I agree with the findings and plan of care. Abdulkadir Osorio MD, GERARDO MD May 17, 2024 15:27
--- NOTE | 2024-05-17 15:41 | NUR ---
DCP: HOME Pt lives with her sister Maria G [place] [phone]. Pt is independent of ADLS, uses no DME or in home care services. PCP Gavino Crews and uses [facility] for rx. Denies dc needs and will return home at md. Addendum: 05/17/24 at 1542 by DELANEY TAN SS Amended: Links added.
--- NOTE | 2024-05-17 16:24 | NUR ---
Patient was discharged, all discharge documentation and personal items taken by patient. Patient informed to follow up with [facility] in 1-[address] Rogers in 1-2 weeks. No new scripts provided, IV was removed, patient ambulated out of facility independently accompanied by daughter.
--- NOTE | 2024-05-17 18:15 | DS ---
Discharge Summary Hospital Course Summary: 83-year-old female with underlying history of hypertension, hyperlipidemia, paroxysmal atrial fibrillation on long-term anticoagulation with Eliquis, paroxysmal atrial flutter status post ablation of atrial flutter on 12/2021, atrial fibrillation status post Farapulse pulse field ablation on 08/30/2023, re current atrial fibrillation and atypical atrial flutter status post repeat Farapulse pulse field ablation on 04/23/2024 with Watchman left atrial appendage closure performed in [facility], history of [id number] mitral regurgitation with mitral annulus caseous calcification on cardiac MRI from 07/20 who presented as a direct admission from Dr. Machado's clinic for further evaluation of possible pseudoaneurysm involving the right radial artery after recent ablation procedure on 04/23/2024.Patient states that postprocedure, she noticed that she has been having progressive pain and swelling involving the right wrist with pulsation noted. Pain is moderate in intensity and the swelling has not improved. The patient was evaluated this morning at her [facility]. She was alert and oriented to person, place, and time. Vital signs were stable, with temperature of 97 F, heart rate of 78 bpm, respiratory rate of 20, and blood pressure of 144/58 mmHg. The patient was initially scheduled for surgery today to repair a pseudoaneurysm in her right wrist. In the afternoon, Dr. Rogers, the cardiovascular surgeon, spoke with the patient and explained that due to insurance-related delays, an emergency case, and a heavy workload, the surgery will need to be rescheduled. Dr. Rogers assured the patient that the procedure could be safely performed on an outpatient basis and planned after the hols. I followed up with the patient after her conversation with Dr. Rogers. She remained stable, and her laboratory results were within relatively normal ranges. Given her stability, the decision was made to discharge the patient. The patient was advised to follow up with her primary care physician within 3-5 days. She was instructed to schedule a follow-up appointment with Dr. Rogers at his clinic to plan the surgery. Additionally, she was advised to follow-up with her industrial order clerk, Dr. Machado, for further evaluation. The patient resumed her regular home medications. The patient was stable at the time of discharge and understood the plan of care. Food Processing Scientist(s): Cardiology Cardiovascular surgery Procedure(s): PATIENT: MINDI CUNNINGHAM MR#: [id number] : 1940 SEX: F AGE: 83 LOCATION: EDHIP ORDER 55 STATUS: ADM IN REPORT#: [id number] SERVICE 54 REASON: r/o pulmonary edema ORDERING PHYSICIAN: ZACHARY WILKES MD PROCEDURE: CXR1VW - CHEST 1VW CHEST 1VW HISTORY: Pulmonary edema COMPARISON: None FINDINGS: A frontal projection of the chest was obtained. Mild bilateral pulmonary infiltrates are seen may be related to mild pulmonary vascular congestion with possible superimposed pneumonitis. The heart is borderline enlarged. Degenerative changes are seen. Aortic calcifications are seen. IMPRESSION: 1. Mild bilateral pulmonary infiltrates are seen may be related to mild pulmonary vascular congestion with possible superimposed pneumonitis. DICTATED BY: MARTÍNEZ SUE MD DATE: 05/16/241719 ELECTRONICALLY SIGNED BY: MARTÍNEZ SUE MD DATE: 05/16/241722 Assessment/Plan: ASSESSMENT: Pseudo-aneurysm involving the right radial artery, (measuring 1.8 cm x 1.1 cm x 1.5 cm ), POA Recent history of Farapulse pulse field ablation due to paroxysmal atrial fibrillation and atypical atrial flutter in [facility], [place], [place], 04/23/2024, POA Status post watchman left atrial appendage closure, 04/23/2024, POA History of chronic anticoagulation with apixaban, (last dose on a.m. of 05/16/2024), POA Acute diastolic heart failure exacerbation, POA Underlying history of mild mitral stenosis and coue-rz-[id number] mitral regurgitation noted on 2D echo from 01/06/2022, POA History of caseous mitral annular calcification noted on cardiac MRI from 07/07/2021 Hypertension, POA Hyperlipidemia, POA Obstructive sleep apnea on CPAP therapy at home, POA Underlying history of asthma, POA Recent history of sepsis due to complicated UTI requiring hospitalization in [facility] on 03/2024, POA Recent history of low serum cortisol on labs from 03/2024, rule out adrenal insufficiency, POA CKD stage 3, POA Discharge Instructions: Follow-up with PCP in 3-5 days Follow-up with cardiology in 1-2 weeks Follow-up with Dr. Rgoers Cardiovascular surgery in 1-2 weeks Home Medications: Reported Medications Metoprolol Tartrate (Metoprolol Tartrate) 25 Mg Tablet, 1 TAB PO BID for 30 Days, #60 TAB 0 Refills 05/17/24 Ramipril (Ramipril) 1.25 Mg Capsule, 1 CAP PO DAILY for 30 Days, #30 CAP 0 Refills 05/17/24 Ezetimibe/Simvastatin (Ezetimibe-Simvastatin 10-20 mg) 1 Each Tablet, 1 EACH PO HS, TAB 12/27/21 Duloxetine HCl (Duloxetine HCl) 60 Mg Capsule.dr, 60 MG PO HS, CAP 12/27/21 Fluticasone Furoate (Arnuity Ellipta) 200 Mcg Blst.w.dev, 1 INHALER IH DAILY PRN for SHORTNESS OF BREATH 12/27/21 Montelukast Sodium (Montelukast Sodium) 10 Mg Tablet, 10 MG PO HS, TAB 12/27/21 Pantoprazole Sodium (Pantoprazole Sodium) 40 Mg Tablet.dr, 40 MG PO DAILY, TAB 12/27/21 Apixaban (Eliquis) 5 Mg Tablet, 5 MG PO BID, TAB 12/27/21 Continued Medications: Apixaban (Eliquis) 5 Mg Tablet 5 MG PO BID, TAB Duloxetine HCl (Duloxetine HCl) 60 Mg Capsule.dr 60 MG PO HS, CAP Ezetimibe/Simvastatin (Ezetimibe-Simvastatin 10-20 mg) 1 Each Tablet 1 EACH PO HS, TAB Fluticasone Furoate (Arnuity Ellipta) 200 Mcg Blst.w.dev 1 INHALER IH DAILY PRN for SHORTNESS OF BREATH Metoprolol Tartrate (Metoprolol Tartrate) 25 Mg Tablet 1 TAB PO BID for 30 Days, #60 TAB 0 Refills Montelukast Sodium (Montelukast Sodium) 10 Mg Tablet 10 MG PO HS, TAB Pantoprazole Sodium (Pantoprazole Sodium) 40 Mg Tablet.dr 40 MG PO DAILY, TAB Ramipril (Ramipril) 1.25 Mg Capsule 1 CAP PO DAILY for 30 Days, #30 CAP 0 Refills Time spent arranging discharge: 1-30 minutes ATTESTATION BY PHYSICIAN I have seen and examined the patient. I reviewed the documentation, medical decision making, and treatment plan as noted by the resident provider above. I agree with the findings and plan of care. Abdulkadir Osorio MD, GERARDO MD May 17, 2024 18:15
[2024-05-18] MEDS ORDERED: furoSEMIDE 20 MG TABLET PO SCH (09:00)
== END 2024-05-17 16:20 | disposition home or self-care (01) | DRG 299 ==
LOC: EDH 16:42 → EDHIP 16:51
PROVIDERS: ADMIT Internal Medicine; ATTEND Internal Medicine
DX: I72.1 Aneurysm of artery of upper extremity (principal); I50.33 Acute on chronic diastolic (congestive) heart failure; I13.0 Hypertensive heart and chronic kidney disease with heart failure and stage 1 through stage 4 chronic kidney disease, or unspecified chronic kidney disease; E78.5 Hyperlipidemia, unspecified; G47.33 Obstructive sleep apnea (adult) (pediatric); I34.0 Nonrheumatic mitral (valve) insufficiency; I48.0 Paroxysmal atrial fibrillation; J45.909 Unspecified asthma, uncomplicated; Z79.01 Long term (current) use of anticoagulants; Z79.899 Other long term (current) drug therapy; Z82.49 Family history of ischemic heart disease and other diseases of the circulatory system; Z95.818 Presence of other cardiac implants and grafts; J98.4 Other disorders of lung; N18.30 Chronic kidney disease, stage 3 unspecified
CPT/HCPCS: 36415; 71045; 80053; 82533; 83735; 83880; 84443; 85025; 85610; 85730; 86140; 86850; 86900; 86901; 94640; 94664; G0378; J1940; J3475

== ENCOUNTER → 2024-05-16 | Outpatient (CLI) | payer MEDICARE ==
[~2024-05-16] MED LIST changes: +BUDESONIDE 0.5 MG/2 ML INH IH SCH; +EZETIMIBE 10 MG TAB PO SCH; +IpraTROPium 0.5 MG/2.5 ML INH IH PRN; +METO25TA6 PO; +PANTOPrazole 40 MG TAB DR PO SCH; +RAMI1.2529 PO; +SERTraline HCL 50 MG TABLET PO SCH; +acetaMINOPHEN 325 MG TAB PO PRN; +dilTIAZem 120MG SR CAP PO SCH; +metoPROLOL tartRATE 25 MG TAB PO SCH; +monteLUKAST sodIUM 10 MG TAB PO SCH; +ondanSETRON 4MG INJ IVP PRN
--- NOTE | 2024-05-16 16:35 | HMCIMG ---
US SOFT TISSUE UPPER EXTREMITY REASON: PSEUDO. COMPARISON: None TECHNIQUE: Right radial artery Doppler ultrasound study was performed. FINDINGS: There is pseudoaneurysm noted in the right radial artery area measuring 1.8 x 1.1 x 1.5 cm with a neck measuring 1 mm long and 2 mm wide. IMPRESSION: Pseudoaneurysm seen adjacent to the right radial artery.
== END | disposition home or self-care (01) ==
LOC: RAH 15:33
PROVIDERS: ATTEND Student in an Organized Health Care Education/Training Program
DX: I72.1 Aneurysm of artery of upper extremity (principal)
CPT/HCPCS: 76882

== ENCOUNTER 2024-06-07 05:33 | Day surgery (SDC) | payer MEDICARE ==
--- NOTE | 2024-06-06 16:56 | HMCIMG ---
CHEST 1VW HISTORY: Preop COMPARISON: 05/16/2024 FINDINGS: A frontal projection of the chest was obtained. No acute pulmonary infiltrates is seen. The heart is borderline enlarged. Aortic calcifications are seen. Degenerative changes are seen. IMPRESSION: 1. No acute pulmonary infiltrate is seen.
[2024-06-07] VITALS (14 sets, daily range): BP systolic 109–139; BP diastolic 44–75; PULSE 60–85; RESP 14–18; TEMP 97.3–97.5
[~2024-06-07] VITALS: Ht 162.6 cm; Wt 74.4 kg
[~2024-06-07 05:33] MED LIST changes: +METO25TA6 PO; +RAMI1.2529 PO
[2024-06-07 06:20] LABS: HEMATOCRIT 35.8 % (36-48); MEAN CORPUSCULAR HGB CONC 31.6 g/dL (32.0-36.0); MEAN CORPUSCULAR VOLUME 85.4 fL (79-99); RED BLOOD CELL COUNT(AUTO) 4.19 MIL/uL (4.00-5.50); RED CELL DISTRIBUTION WIDTH 14.6 % (11.0-15.5); WHITE BLOOD COUNT (AUTO) 10.6 K/uL (4.8-10.8)
[2024-06-07 06:35] LABS: POTASSIUM 3.5 mmol/L (3.5-5.1)
[2024-06-07 06:55] LABS: INR 0.96 (0.85-1.15); PROTHROMBIN TIME 10.8 SEC (9.6-11.6)
[2024-06-07 06:56] LABS: PARTIAL THROMBOPLASTIN TIME 26.5 SEC (26.3-35.5)
[2024-06-07] MEDS ORDERED: ceFAZolin SODIUM 1 GM VIAL ONE (07:04)
[2024-06-07] MEDS ORDERED: HEParin-NS 1,000 UNIT/500 ML 500 ML IV ONE (07:04)
[2024-06-07] MEDS: ceFAZolin SODIUM 2 GM VIAL ONE (08:21)
[2024-06-07] MEDS: 0.9%NACL 1000ML 1,000 ML IV ONE (08:21)
[2024-06-07] MEDS ORDERED: DILT300C54 PO (08:26)
[2024-06-07] MEDS ORDERED: SERT-439 PO (08:26)
[2024-06-07] MEDS ORDERED: RAMI2.5C57 PO (08:26)
[2024-06-07] MEDS ORDERED: TRAZ-185 PO (08:26)
[2024-06-07] MEDS ORDERED: CLINDAMYCIN IVPB 900MG/50ML 50 ML IV ONE (08:55)
[2024-06-07] MEDS ORDERED: dexaMETHasone SOD PHOSPHATE 10MG/ML 1ML VIAL ONE (09:07)
[2024-06-07] MEDS ORDERED: LIDOCAINE PF 100MG/5ML (2%) SYRINGE 5ML ONE (09:07)
[2024-06-07] MEDS ORDERED: proPOFol 10 MG/ML 20ML VIAL IV ONE (09:08)
[2024-06-07] MEDS ORDERED: FENTanyl CITRate PF 50 MCG/1 ML 2ML VIAL ONE (09:08)
[2024-06-07] MEDS ORDERED: NEOSTIGMINE METHYLSULFATE 1MG/ML IV ONE (09:08)
[2024-06-07] MEDS ORDERED: GLYCOPYRROLATE 0.2 MG/ML 5 ML VIAL ONE (09:08)
[2024-06-07] MEDS ORDERED: rocuRONium bROMide 10MG/1ML 5ML VL ONE (09:08)
[2024-06-07] MEDS ORDERED: SUCCINYLCHOLINE CHLORIDE 20 MG/ML 10 ML VIAL ONE (09:08)
--- NOTE | 2024-06-07 20:25 | OP ---
DATE OF PROCEDURE: 06/07/2024 PREOPERATIVE DIAGNOSIS: Pseudoaneurysm radial artery, right hand. POSTOPERATIVE DIAGNOSIS: Pseudoaneurysm radial artery, right hand. PROCEDURE PERFORMED: Primary repair and resection. SURGEON: Manny Rogers MD RETAIL PLANNER: . DISPOSITION: Stable. COMPLICATIONS: None. INDICATIONS: This is a patient of Dr. Machado who underwent a procedure to the radial artery and developed a pseudoaneurysm that matured. The patient was initially given conservative therapy by pressure and thrombin injection and the pseudoaneurysm did not disappear. The patient is brought forward for repair. FINDINGS AT THE TIME OF SURGERY: A 1.8 cm pseudoaneurysm was identified and resected and its puncture site in the radial artery repaired primarily with 6-0 Prolene. At the end of the procedure, we had good pulses. Important is to mention the radial nerve was identified and kept protected at all times. DESCRIPTION OF PROCEDURE: With the patient in supine position after adequate induction of general endotracheal anesthesia, preoperative intravenous antibiotics, percutaneous arterial and venous lines, the patient was given heparin 2500, and a small elliptical incision was performed removing part of the skin. The pseudoaneurysm was fully mobilized, control obtained proximally and distally. The pseudoaneurysm was entered and resected, and the small puncture site was repaired with an interrupted suture of [id number] of 8-0 Prolene. Hemostasis and closure with 2-0 Vicryl and 3-0 Monocryl. The patient was transferred in stable condition to the recovery room. TID: [id number] RECEIPT: [id number]
== END 2024-06-07 11:35 | disposition home or self-care (01) ==
LOC: DAH 05:33
PROVIDERS: ATTEND Thoracic Surgery (Cardiothoracic Vascular Surgery)
DX: I72.1 Aneurysm of artery of upper extremity (principal); I25.10 Atherosclerotic heart disease of native coronary artery without angina pectoris; I48.19 Other persistent atrial fibrillation; I10 Essential (primary) hypertension; E78.5 Hyperlipidemia, unspecified; Z88.0 Allergy status to penicillin; Z88.5 Allergy status to narcotic agent; Z79.01 Long term (current) use of anticoagulants; Z79.899 Other long term (current) drug therapy
CPT/HCPCS: 71045; 37799; 80048; 85027; 85610; 85730; 86850; 86900; 86901; 36415; A4223 ×2; A4663; J7040; J7030 ×2; J3010; J0690; J1100; J0330; J3490 ×3; J2003; J2704; J2710; J1644; A4649 ×5; A6251; C1713 ×2; A4930 ×2; A4215; A4213; A4222; A4221; A4216

== ENCOUNTER → 2024-06-27 | Outpatient (CLI) | payer MEDICARE ==
[~2024-06-27] MED LIST changes: +DILT300C54 PO; -DULO60CA64 PO; -RAMI1.2529 PO; +RAMI2.5C57 PO; +SERT-439 PO; +TRAZ-185 PO
[2024-06-27 16:50] LABS: % IRON SATURATION 6.8 % (22-44)
[2024-06-27 16:58] LABS: FERRITIN 25 ng/mL (15-150)
== END | disposition home or self-care (01) ==
LOC: LAB 11:46
PROVIDERS: ATTEND Internal Medicine Cardiovascular Disease
DX: D64.9 Anemia, unspecified (principal); E78.5 Hyperlipidemia, unspecified; I72.9 Aneurysm of unspecified site; I11.0 Hypertensive heart disease with heart failure; I50.32 Chronic diastolic (congestive) heart failure; I48.0 Paroxysmal atrial fibrillation; Z98.890 Other specified postprocedural states; Z79.01 Long term (current) use of anticoagulants; Z79.899 Other long term (current) drug therapy
CPT/HCPCS: 36415; 82607; 82728; 82747; 83540; 83550